=== PATIENT | male | born 1995 | race African-American/Black ===

== ENCOUNTER 2017-07-15 19:22 | Outpatient (CLI) | payer OTHER | END 2017-07-15 19:28 | disposition short-term general hospital (02) | LOC: AMB 19:22 | DX: R22.0 Localized swelling, mass and lump, head (principal); R04.0 Epistaxis; V49.88XA Car occupant (driver) (passenger) injured in other specified transport accidents, initial encounter; Y92.488 Other paved roadways as the place of occurrence of the external cause | CPT/HCPCS: A0425; A0427 ==

== ENCOUNTER 2017-07-15 19:46 | Emergency (ER) | payer OTHER ==
[~2017-07-15] VITALS: Ht 165.1 cm; Wt 56.7 kg
[2017-07-15 19:30] VITALS: BP 124/84; TEMP 99
[2017-07-15 20:31] LABS: PLATELET COUNT 257 K/uL (142-355)
[2017-07-15 20:36] LABS: POTASSIUM 3.3 mmol/L (3.6-5.2)
== END 2017-07-15 20:50 ==
LOC: ED 19:46
DX: R22.0 Localized swelling, mass and lump, head (principal); V49.9XXA Car occupant (driver) (passenger) injured in unspecified traffic accident, initial encounter
CPT/HCPCS: 80053; 80307; 81000; 85027; 99283